=== PATIENT | female | born 1950 | race Caucasian/White ===

== ENCOUNTER → 2021-01-12 15:05 | Outpatient (CLI) | payer MEDICARE, SELFPAY ==
--- NOTE | ~2021-01-12 | XR_ITS ---
EXAMINATION: XR shoulder RT min 2V DATE: 01/12/2021 15:22 INDICATION: Right shoulder pain. TECHNIQUE: 4 views of right shoulder were obtained. COMPARISON: None. FINDINGS: Bone alignment is normal. No fracture. There is severe osteoarthritis of glenohumeral joint and moderate osteoarthritis of acromioclavicular joint. IMPRESSION: 1. Polyarticular osteoarthritis. Reviewed, dictated and finalized at location A.
== END ==
PROVIDERS: PCP Physician Assistant Medical; Visit Provider Physician Assistant Medical
DX: M25.511 Pain in right shoulder (principal); M19.011 Primary osteoarthritis, right shoulder
CPT/HCPCS: 73030

== ENCOUNTER → 2022-10-07 10:18 | Outpatient (CLI) | payer MEDICARE, SELFPAY ==
--- NOTE | ~2022-10-07 | DEXA_ITS ---
Bone Density Report Name: ERIC JARAMILLO Age: 71 Sex: Female Ethnicity: White Date of : 1950 Indication: postmenopausal osteoporosis; parental hip fracture; Referring Provider: Karen Brito Study: Bone densitometry was performed. Exam Date: October 07, 2022 Accession number: [id number] Bone Density: Region BMD T-score Z-score Classification AP Spine (L1-L4) 0.588 -4.2 -2.0 Osteoporosis Femoral Neck (Left) 0.642 -1.9 0.0 Osteopenia Total Hip (Left) 0.776 -1.4 0.2 Osteopenia Femoral Neck (Right) 0.616 -2.1 -0.2 Osteopenia Total Hip (Right) 0.702 -2.0 -0.4 Osteopenia Total Hip Mean 0.739 -1.7 -0.1 Osteopenia World Health Organization criteria for BMD impression classify patients as: Normal (T-score at or above -1.0), Osteopenia (T-score between -1.0 and -2.5), or Osteoporosis (T-score at or below -2.5). 10-year Fracture Risk: FRAX not reported because: Some T-score for Spine Total or Hip Total or Femoral Neck at or below -2.5 Previous Exams: Region Exam Age BMD T-score BMD Change BMD Change Date g/cm2 vs Baseline vs Previous AP Spine(L1-L4) 10/07/2022 71 0.588 -4.2 -0.152 -0.063* 04/14/2015 64 0.652 -3.6 -0.089 -0.089 10/08/2009 58 0.741 -2.8 Total Hip(Left) 10/07/2022 71 0.776 -1.4 -0.069* 0.018 04/14/2015 64 0.758 -1.5 -0.087* -0.087* 10/08/2009 58 0.845 -0.8 Total Hip(Right) 10/07/2022 71 0.702 -2.0 -0.126* -0.049* 04/14/2015 64 0.751 -1.6 -0.077* -0.077* 10/08/2009 58 0.828 -0.9 *Denotes significance at 95% confidence level, LSC for AP Spine = 0.022 g/cm2, LSC for Total Hip = 0.027 g/cm2 Clinical Information Provided by Patient: Parent has had a hip fracture Has used the following medications: Vitamin D, Calcium Patient maximum height was 65.5 Menopause Age: 53 No regular weight bearing exercise Does not regularly consume dairy products Onset of menses at age 13 Number of children 1 Impression: The patient has osteoporosis, based on the Total Spine T-score. The patient has risk factors, including: parental hip fracture. The BMD for the AP Spine(L1-L4) decreased, changing by -0.063 since the last DXA exam. The BMD for the Total Hip(Right) decreased, changing by -0.049 since the last DXA exam. Discussion: HIGH RISK OF FRACTURE. BONE DENSITY IS UNDESIRABLY LOW AT ONE OR MORE SKELETAL SITES, CONSISTENT WITH
== END ==
PROVIDERS: PCP Family Medicine; Visit Provider Nurse Practitioner
DX: Z78.0 Asymptomatic menopausal state (principal); M81.0 Age-related osteoporosis without current pathological fracture; M85.852 Other specified disorders of bone density and structure, left thigh; M85.851 Other specified disorders of bone density and structure, right thigh
CPT/HCPCS: 77080

== ENCOUNTER 2023-08-09 08:05 | Outpatient (CLI) | payer SELFPAY ==
[2023-08-09 08:55] LABS: Kit Draw Collected
== END 2023-08-09 08:06 | disposition home or self-care (01) ==
PROVIDERS: PCP Family Medicine
DX: Z76.89 Persons encountering health services in other specified circumstances (principal)
CPT/HCPCS: 36415

== ENCOUNTER 2024-02-28 09:43 | Outpatient (CLI) | payer MEDICARE, OTHER, SELFPAY ==
[2024-02-28 14:13] LABS: Basophils Percent Auto 0.7 % (0.2-1.2); Eosinophils Absolute Auto 0.1 K/mm3 (0-0.3); Eosinophils Percent Auto 1.5 % (0-4.4); Hematocrit 41.5 % (37.0-47.0); Hemoglobin 13.7 g/dL (12.0-15.0); Immature Granulocyte Absolute 0.01 K/mm3 (0.00-0.031); Immature Granulocyte Percent A 0.2 % (0-0.5); Lymphocytes Absolute Auto 1.38 K/mm3 (0.9-3.2); Lymphocytes Percent Auto 30.5 % (18.3-44.2); Mean Corpuscular Hemoglobin 32.3 pg (26-34); Mean Corpuscular Volume 97.9 fl (80-100); Mean Platelet Volume 11.4 fl (7.4-10.4); Monocytes Absolute Auto 0.4 K/mm3 (0.1-0.6); Monocytes Percent Auto 8.4 % (2.6-8.5); Neutrophils Absolute Auto 2.7 K/mm3 (1.3-6.7); Neutrophils Percent Auto 58.7 % (45.5-73.1); Platelet Count Result 193 k/mm3 (150-375); Red Blood Count 4.24 M/mm3 (4.2-5.4); White Blood Count 4.5 K/mm3 (4.5-10.0)
[2024-02-28 14:20] LABS: Anion Gap 6 mmol/L (4-12); Blood Urea Nitrogen 16 mg/dL (7-17); Calcium 9.2 mg/dL (8.4-10.2); Carbon Dioxide 29 mmol/L (22-30); Chloride 101 mmol/L (98-107); Cholesterol 269 mg/dL (0-200); Estimated Glomerular Filt Rate > 60; Glucose 95 mg/dL (65-110); HDL Direct 67 mg/dL; Potassium 3.9 mmol/L (3.4-5.0); Sodium 136 mmol/L (137-145); Triglycerides 122 mg/dL (<150)
[2024-02-28 14:32] LABS: LDL Cholesterol Direct 157 mg/dL
[2024-02-28 15:24] LABS: Hepatitis C Virus Antibody Negative (Negative)
== END 2024-02-28 09:44 | disposition home or self-care (01) ==
PROVIDERS: PCP Family Medicine; Visit Provider Nurse Practitioner Family
DX: E78.5 Hyperlipidemia, unspecified (principal); F41.1 Generalized anxiety disorder; G43.109 Migraine with aura, not intractable, without status migrainosus; L82.1 Other seborrheic keratosis; N89.8 Other specified noninflammatory disorders of vagina; Z11.59 Encounter for screening for other viral diseases
CPT/HCPCS: 36415; 80048; 80061; 84443; 85025; 86803

== ENCOUNTER 2024-04-05 14:44 | Outpatient (CLI) | payer MEDICARE, OTHER, SELFPAY ==
--- NOTE | 2024-04-05 15:18 | ECG_ITS ---
Test Date: 2024-04-05 15:23:09 Measurements Intervals [place] Rate: 75 P: 68 OR: 208 QRS: 74 QRSD: 82 T: 73 QT: 374 QTc: 419 Interpretive Statements SINUS RHYTHM NORMAL ECG No previous ECG available for comparison Electronically Signed On 04-05-2024 15:40:53 CDT by Reno Hadley D.O.
== END 2024-04-05 14:45 | disposition home or self-care (01) ==
PROVIDERS: PCP Family Medicine
DX: J32.9 Chronic sinusitis, unspecified (principal)
CPT/HCPCS: 93005

== ENCOUNTER 2025-04-09 13:29 | Outpatient (CLI) | payer MEDICARE, OTHER, SELFPAY ==
--- OUTSIDE RECORDS SUMMARY | 2024-07-01 11:30 | XMS_ITS ---
Author Organization [facility] ([address]) Address [address] [place] [address] Care Team Providers Care Extractor And Wringer Operator Name Role Phone Kell Sanchez Unavailable [phone] REASON FOR VISIT FLUXER Allergies Encounters Encounter Location Date Provider Diagnosis [facility] [address] [place] [address] 07/01/2024 Kell Sanchez Plan Of Treatment No Information Progress Notes * Lilly HITCHCOCKeDOB: [birth year] (74 yo F)Acc No.[id number]:07/01/2024 Progress Notes Patient: Tiffanie SMITH Provider: LILIAN Gonzales :1950 A ge:73 Y S ex:Female Date:07/01/2024 Address:[facility] [address] [facility] Subjective: * Chief Complaints: * 1 . FLUXER Allergies. * Medical History: Objective: * Vitals: Assessment: Plan: * Treatment: * Billing Information: * Visit Code: * Procedure Codes: * Electronic signature of Kell Sanchez DNP, FNP-C on 04/10/2025 at 12:44 PM GEAR MACHINE OPERATOR GENERAL Sign off status: Pending * Provider: LILIAN Gonzales Date: 0 07/01/2024 Generated for Printi ng/Faxing/eTransmitting on: 06/10/2024 12:44 PM GEAR MACHINE OPERATOR GENERAL
--- NOTE | ~2025-04-09 | US_ITS ---
EXAMINATION: US pelvic complete w TV INDICATION: Family history of malignant neoplasm of the ovary Comparison:No prior studies for comparison. TECHNIQUE: Multiple transabdominal and endovaginal sonographic images of the pelvis performed. FINDINGS: The uterus measures 5.4 x 3.1 x 3.9 cm. Focal calcification identified in the cervical canal of doubtful clinical significance. The endometrial complex measures 3 mm. The right ovary measures 2.4 x 0.8 x 1 cm and the left ovary measures 3.3 x 0.8 x 0.8 cm. There are small follicles in each ovary. Normal doppler signal in both ovaries. There is no free fluid in the pelvis. There are no abnormal masses seen on either side. IMPRESSION: 1. Unremarkable pelvic ultrasound. Reviewed, dictated and finalized at location O. L CASTER
--- OUTSIDE RECORDS SUMMARY | 2025-04-10 12:44 | XMS_ITS | Clinical Summary ---
Author Organization [facility] Address [address] [place] [address] Phone Care Team Providers Care Team Supervisor Name Role Phone Mack Carmichael MD Primary Care Provider [phone]- [phone] Encounters Date Type Department Care Team Description 03/26/2025 External Device Data [facility] ABSTRACTION Provider, Abstract 03/25/2025 External Device Data [facility] ABSTRACTION Provider, Abstract 02/25/2025 External Device Data [facility] ABSTRACTION Provider, Abstract 02/18/2025 External Device Data [facility] ABSTRACTION Provider, Abstract 02/11/2025 External Device Data [facility] ABSTRACTION Provider, Abstract 01/21/2025 External Device Data [facility] ABSTRACTION Provider, Abstract from Last 3 Months Family History Medical History Relation Name Comments Ovarian Cancer Mother Relation Name Status Comments Mother Social History Tobacco Use Types Packs/Day Years Used Date Smoking Tobacco: Never Assessed Comments No Sex and Gender Information Value Date Recorded Sex Assigned at Not on file Legal Sex Female 4:36 AM PHARMACY CONSULTANT Gender Identity Not on file Sexual Orientation Not on file Plan of Treatment Health Maintenance Due Date Last Done Comments FIT-DNA Q 3 years 01/01/1996 FIT/FOBT Q 1 year 01/01/1996 Flex Sig/CT Colonography Q 5 years 01/01/1996 PNEUMOCOCCAL VACCINE 50+ YEA RS (1 of 1 - PCV) 2000 ZOSTER VACCINE (1 of 2) 2000 OSTEOPOROSIS SCREENING 01/01/2016 INFLUENZA VACCINE (#1) 2025 BREAST CANCER SCREENING 12/04/2025 12/05/19 25, 10/04/2022, 12/25/2020, Additional history exists RSV VACCINE (60+ or ) (1 - 1-dose 75+ series) 2025 DTAP/TDAP/TD VACCINES (2 - T d or Tdap) 04/18/2026 04/18/2016 COLORECTAL SCREENING 07/07/2032 07/07/2022 Colorectal Cancer Screening 07/07/2032 Procedures Procedure Name Priority Date/Time Associated Diagnosis Comments MAMMO 3D ALAINA SCREEN BILAT W OR WO CAD Routine 12/04/2024 2:36 PM CDT Visit for screening mammogram from Last 3 Months or Most Recently Relevant to Health Maintenance Results * MAMMO 3D ALAINA SCREEN BILAT W OR WO CAD (12/04/2024 2:36 PM CDT) Anatomical Region Laterality Modality Breast Bilateral Mammography 12/04/2024 2:36 PM CDT Impressions 12/04/2024 3:13 PM CDT IMPRESSION: No mammographic evidence of malignancy. RECOMMENDATIONS: Routine screening mammogram in one year. DICTATION LOCATION: [facility] Narrative 12/04/2024 3:13 PM CDT BILATERAL FULL-FIELD DIGITAL SCREENING MAMMOGRAM WITH CAD WITH 3D TOMOSYNTHESIS DATE: 12/04/2024 2:36 PM HISTORY: Routine screening. TECHNIQUE: Full-field digital craniocaudal and mediolateral oblique projections of both breasts were obtained. Low-dose full-field digital breast tomosynthesis examination was performed with 2D and 3D acquisitions. Examination is read in conjunction with computer aided detection. COMPARISON: 2022, 2020, 2014 BREAST COMPOSITION: The breasts are heterogeneously dense, which may obscure small masses. FINDINGS: No suspicious mass, suspicious microcalcifications, or architectural distortion in either breast is identified. Since the prior study, there has been no significant interval change. The computer aided diagnosis detects no significant abnormality. OVERALL FINAL ASSESSMENT: BI-RADS CATEGORY 1: Negative. us Mack Carmichael MD MAMMO ORDERABLES Final Res ult from Last 3 Months or Most Recently Relevant to Health Maintenance Insurance MEDICARE PART A AND B [facility] [place] [id number] Care Teams Team Supervisor Relationship Specialty Start Date End Date Mack Carmichael MD PCP - General Family Practice 12/25/12
--- OUTSIDE RECORDS SUMMARY | 2025-04-10 12:44 | XMS_ITS | Clinical Summary ---
Author Organization [facility] Address [address] [place] [address] Care Team Providers Care Sack Lifter Name Role Phone Unavailable Primary Care Provider Unavailabl e Social History Tobacco Use Types Packs/Day Years Used Date Smoking Tobacco: Never Assessed Comments Unknown Sex and Gender Information Value Date Recorded Sex Assigned at Not on file Legal Sex Female 9:52 AM BINDERY SUPERVISOR Gender Identity Not on file Sexual Orientation Not on file Plan of Treatment Health Maintenance Due Date Last Done Comments Hepatitis C Virus (HCV) Screening 1950 Cologuard 01/01/1996 Colonoscopy 01/01/1996 Colorectal Cancer Screening 01/01/1996 Immunochemical Fecal Occult Blood 01/01/1996 Pneumococcal Immunization (5 0+ years) (1 of 1 - PCV) 2000 Zoster Immunization (1 of 2) 2000 Influenza Immunization (#1) 02/03/202501/2020, 06/13/2019 SARS-COV-2 Immunization (1 - season) 2025 Respiratory Syncytial Virus (RSV) Immunization (Adult) (1 - 1-dose 75+ series) 2025 DTaP/Tdap/Td Immunization Discontinued 04/18/2016 TdaP Immunization Completed 04/18/2016 Hepatitis B Immunization Aged Out No longer eligible based on patient's age to complete this topic Human Papillomavirus (HPV) Immunization Aged Out No longer eligible based on patient's age to complete this topic Meningococcal Immunization (ACWY) Aged Out No longer eligible based on patient's age to complete this topic Rotavirus Immunization Aged Out No lo nger eligible based on patient's age to complete this topic Insurance [employer] on file
--- OUTSIDE RECORDS SUMMARY | 2025-04-10 12:44 | XMS_ITS | Clinical Summary ---
Author Organization [facility] Address [address] [place] [address] Care Team Providers Care Data Warehouse Consultant Name Role Phone Mack Carmichael MD Primary Care Provider [phone]- [phone] Source Comments [facility],non-owned Affiliates and Associated Physician Practices is amultiple site organization consisting of ambulatory clinics and hospital sitesin [place], [place], [place]. This disclosure is being madepursuant to the Care Everywhere program and may not contain all information available regarding this patient. Last updated 18.[facility] Immunizations Immunization Administration Dates Next Due TDAP (7yrs+) 04/18/2016 Social History Tobacco Use Types Packs/Day Years Used Date Smoking Tobacco: Never Assessed Comments Unknown Sex and Gender Information Value Date Recorded Sex Assigned at Not on file Legal Sex Female 6:28 AM PET WALKER Gender Identity Not on file Sexual Orientation Not on file Plan of Treatment Health Maintenance Due Date Last Done Comments BONE DENSITY TESTING 1950 COLOGUARD (AGES 45-75) - COL ON CA SCREENING 1950 COLON MONITORING 1950 COLONOSCOPY - COLON CA SCREENING [address] CT COLONOGRAPHY - COLON CA SCREENING 1950 Colorectal Cancer Screening 1950 FIT - COLON CA SCREENING 1950 FLEX SIG - COLON CA SCREENING 1950 LIPID TESTING 1950 MAMMOGRAM 1950 HEPATITIS C SCREENING 12/26/1968 PNEUMOCOCCAL VACCINE 50+ (1 of 1 - PCV) 2000 ZOSTER VACCINE (1 of 2) 2000 DEPRESSION SCREENING 06/05/2024 COVID-19 VACCINE ( - 2023-2 5 season) 2025 INFLUENZA VACCINE (#1) 2025 Respiratory Syncytial Virus (RSV) Vaccine Pt: or over 60 yrs (1 - 1-dose 75+ series) 2025 DTAP/TDAP/TD VACCINES (2 - T d or Tdap) 04/18/2026 04/18/2016 HEPATITIS B VACCINE Aged Out No longe r eligible based on patient's age to complete this topic HIB VACCINE Aged Out No longer eligi ble based on patient's age to complete this topic HPV VACCINE Aged Out No longer eligi ble based on patient's age to complete this topic MENINGOCOCCAL (Group B) VACC INE SHARED DECISION-MAKING Aged Out No longer eligibl e based on patient's age to complete this topic MENINGOCOCCAL GROUPS A/C/Y/W VACCINE Aged Out No longer eligible b ased on patient's age to complete this topic [place] [address] COVENTRY MEDICARE Care Teams Data Warehouse Consultant Relationship Specialty Start Date End Date Mack Carmichael MD [address] [place] [id number] PCP - General Family Medicine 04/18/16
--- OUTSIDE RECORDS SUMMARY | 2025-04-10 12:44 | XMS_ITS | Encounter Summary ---
Author Organization [facility] Address [address] [place] [address] Care Team Providers Care Hose Turner Name Role Phone Mack Carmichael MD Primary Care Provider +1- [phone] Encounter Details Date Type Department Care Team (Late st Contact Info) Description 01/21/2003 Outpatient Historical [facility] Internal Medicine [address] [place] [address] [address] [place] [address] [place] [id number] [place] [address] [address] [place] [address] Social History Tobacco Use Types Packs/Day Years Used Date Smoking Tobacco: Never Assessed Comments Unknown Sex and Gender Information Value Date Recorded Sex Assigned at Not on file Legal Sex Female 4:36 AM IMPLEMENT MECHANIC Gender Identity Not on file Sexual Orientation Not on file documented as of this encounter Plan of Treatment Not on file documented as of this encounter Visit Diagnoses Not on filedocumented in this encounter Care Teams Hose Turner Relationship Specialty Start Date End Date Mack Carmichael MD PCP - General Family Practice 12/25/12 documented as of this encounter
--- OUTSIDE RECORDS SUMMARY | 2025-04-10 12:45 | XMS_ITS | Data Portability ---
Author Organization [facility] Address [address] [place] [address] Care Team Providers Care Mechanical Integrity Specialist Name Role Phone DAXAMARIZA LEVY Primary Care Provider [phone] Assessment No assessment recorded. Plan of Treatment Reminders Order Date Submit Date Provider Last Modified By Organization Details Last Modified Time Details Appointments None recorded. Lab None recorded. Referral None recorded. Procedures None recorded. Surgeries None recorded. Imaging None recorded. Medication Orders Imvexxy Maintenance Pack 4 mcg vaginal insert 2022 023 cfriederi [id number], [address], [place], [id number], 20:19:09 Patient TargetsNo targets recorded. Patient InstructionsNo instructions recorded. Reason for Referral None Reported. Results Created Date Observation Date Name Description Value Unit Range Abnormal Flag Note LastModifiedBy Organization Detail LastModifiedTime 09/22/1909/21/2022 VAGIN ITIS/ VAGIN OSIS, DNA PROBE erick sp. detection, direct probe Negati ve negati ve Not Available [facility] (Lab) [address], [place], [address], 09/22/2022 18:43:50 09/22/19 23 09/21/2022 VAGIN ITIS/ VAGIN OSIS, DNA PROBE gardnerella vag. detection, direct probe Positi ve negati ve abnormal Not Available [facility] (Lab) [address], [place], [address], 09/22/2022 18:43:50 09/22/19 23 09/21/2022 VAGIN ITIS/ VAGIN OSIS, DNA PROBE trichomonas vag. detection, direct probe Negati ve negati ve Not Available [facility] (Lab) [address], [place], [address], 09/22/2022 18:43:50 Result Notes None recorded. Problems Name Problem SNOMED Code Status Onset Date Resolution Date Notes Provider Name and Address Organization Details Recorded Time Family history of malignant neoplasm of ovary 429732291 Active 2015 Family history of cancer of ovary;Antonio rded Elsewhere: No Locatio n: [facility] rce: EHR Chroni c: N Practice ID: [id number] Billflash ble Time: 02:00:00 PM Not Available [facility] 0 21:26:14 Problem Notes None recorded. Procedures Surgical History Date Name Laterality Status Provider Name and Address Organization Details Recorded Time 07/07/19 23 Date of Last Colonoscopy completed [facility] 09/21/2022 15:22:01 07/07/19 23 Colonoscopy completed [facility] 09/21/2022 15:39:21 07/06/19 23 completed [facility] 09/21/2022 15:22:01 06/05/19 21 Date of Last Mammogram completed [facility] 09/21/2022 15:22:01 06/05/19 21 Date of Last Pap Smear completed [facility] 09/21/2022 15:22:01 06/05/19 18 Nsl/sins ndsc surg max sins completed [facility] 09/21/2022 15:38:51 06/05/19 10 Most Recent Bone Density completed [facility] 09/21/2022 15:22:01 06/05/19 03 frontal sinusectomy completed Nikole Goldstein [facility] 09/21/2022 15:38:35 06/05/18 93 Tubal Ligation completed Nikole Goldstein [facility] 09/21/2022 15:38:08 Imaging Results None recorded. Procedure Notes None recorded. Medical Equipment None Reported. Allergies No known drug allergies Medications Name Sig Start Date Stop Date Status Note LastModified by Organization Details LastModified Time fluconazo le 150 mg tablet TAKE 1 TABLET BY MOUTH 1 TIME 09/21 completed Not Available Not Available Not Available metronida zole 0.75 % (37.5 mg/5 gram) vaginal gel INSERT ONE APPLICAT ORFUL VAGINALL Y AT BEDTIME FOR 5 NIGHTS 10/05 completed Not Available Not Available Not Available amoxicill in 500 mg tablet take 1 tablet by oral route 3 times every day 09/21 completed Prescrib ed Elsewher e: No Locat ion: Mansoor heath [facility] odify By: miguel Heath ncounter DateTime : 04/10/20 17 03:39:25 PM Not Available Not Available Not Available alprazola m 0.5 mg tablet TAKE 1 TABLET BY MOUTH EVERY DAY AT BEDTIME NEEDED FOR ANXIETY active Not Available Not Available No t Available amitripty line 10 mg tablet TAKE 5 TABLETS BY MOUTH EVERY DAY AT BEDTIME active Not Available Not Available No t Available Xanax 0.25 mg tablet take 1 tablet by oral route 3 times every day 09/21 completed Prescrib ed Elsewher e: Yes Loca tion: [facility] odify By: amcaro Heath ncounter DateTime : 09/07/19 16 02:00:00 PM Not Available Not Available Not Available methylpre dnisolone 4 mg tablets in a dose pack FOLLOW PACKAGE DIRECTIO NS 09/21 completed Not Available Not Available Not Available Terazol 7 0.4 % vaginal cream insert 1 applicat orful by vaginal route every day for 7 days at bedtime 03/23 completed Prescrib ed Elsewher e: No Locat ion: Mansoor heath [facility] odify By: nerissahar tz Encou nter DateTime : 03/17/20 17 10:45:00 AM Not Available Not Available Not Available ondansetr on 4 mg disintegr ating tablet DISSOLVE 1 TABLET BY MOUTH 30 MINUTES PRIOR TO EACH PREP DOSE 09/21 completed Not Available Not Available Not Available Lipitor 10 mg tablet take 1 tablet by oral route every day 09/21 completed Prescrib ed Elsewher e: Yes Loca tion: Mansoor heath [facility] odify By: conchita dominguezunter DateTime : 09/07/19 16 02:00:00 PM Not Available Not Available Not Available nitrofura ntoin monohydra te/macroc rystals 100 mg capsule TAKE 1 CAPSULE BY MOUTH EVERY 12 HOURS FOR 7 DAYS 09/21 completed Not Available Not Available Not Available Divigel 0.5 mg/0.5 gram (0.1 %) transderm al gel packet apply 1 packet by topical route every day to upper thigh 09/21 completed Prescrib ed Elsewher e: Yes Loca tion: Mansoor heath [facility] odify By: marc smither DateTime : 04/06/20 17 11:30:00 AM Not Available Not Available Not Available Vagifem 10 mcg vaginal tablet insert 1 tablet by vaginal route 2 times every week 04/06 completed Prescrib ed Elsewher e: No Locat ion: Mansoor heath [facility] odify By: marc smither DateTime : 10/05/19 16 02:00:00 PM Not Available Not Available Not Available Plenvu 140 gram-9 gram-5.2 gram powder packs MIX AND DRINK DIRECTED MORNING AND EVENING SPLIT DOSING FIRST DOSE 6PM NIGHT BEFORE AND SECOND DOSE 6 HOURS PRIOR TO PROCEDUR E 09/21 completed Not Available Not Available Not Available Imvebest Maintenan ce Pack 4 mcg vaginal insert Insert 1 vaginal insert twice a week by vaginal route for 30 days. 2022 active Not Available Not Available Not Avai lable Vitals Date Recorded Body height Body mass index (BMI) Body weight Systolic And Diastolic Provider Name and Address Organization Details Last Updated DateTime 09/21/2022 165.1 cm 20 kg/m2 79347.08 g 118/78 mm[Hg] Nikole Goldstein [facility] 09/21/2022 15:21:10 Date Recorded Body height Body mass index (BMI) Body weight Systolic And Diastolic Provider Name and Address Organization Details Last Updated DateTime 10/05/2022 165.1 cm 20.3 kg/m2 82986.27 g 128/82 mm[Hg] Marianne Abner [facility] 10/05/2022 15:03:18 Social History Question Answer Notes LastModified by Organizat ion Details LastModified Time Tobacco Smoking Status Former Smoker Nikole Goldstein [facility], [facility] 09/21/2022 15:37:06 How Many Years Have You Consumed Alcohol? 50 [email or web address] Information not available 09/21/2022 Are You Blind Or Do You Have Difficulty Seeing? No [email or web address] Information n ot available 09/21/2022 What Is Your Level Of Caffeine Consumption? Moderate [email or web address] Information not available 09/21/2022 How Much Tobacco Do You Chew? None [email or web address] Information not available 09/21/2022 In The 14 Days Before Symptom Onset, Have You Had Close Contact With A Laboratory-confirm ed COVID-19 While That Case Was Ill? No [email or web address] Information n ot available 09/21/2022 In The 14 Days Before Symptom Onset, Have You Had Close Contact With A Person Who Is Under Investigation For COVID-19 While That Person Was Ill? No Information not available 09/21/2022 Have You Been To An Area Known To Be High Risk For COVID-19? No [email or web address] Information not available 09/21/2022 Are You Deaf Or Do You Have Serious Difficulty Hearing? No [email or web address] Information not available 09/21/2022 What Type Of Diet Are You Following? REGULAR [email or web address] Information n ot available 09/21/2022 What Is The Highest Grade Or Level Of School You Have Completed Or The Highest Degree You Have Received? [id number] [email or web address] Information not available 09/21/2022 Are There Any Guns Present In Your Home? No [email or web address] Information not available 09/21/2022 Have You Ever Been Counseled For Unhealthy Alcohol Use? No [email or web address] Information not available 09/21/2022 Do You Use Protection During Sex? No [email or web address] Information not available 09/21/2022 Do You Use Your Seat Belt Or Car Seat Routinely? Yes [email or web address] Information not available 09/21/2022 Do You Have Smoke And Carbon Monoxide Detectors In Your Home? Yes [email or web address] Information not available 09/21/2022 At What Age Did You Start Smoking Tobacco? 15 [email or web address] Information not available 09/21/2022 How Much Tobacco Do You Smoke? No [email or web address] Information not available 09/21/2022 Do You Use Sunscreen Routinely? Yes [email or web address] Information not available 09/21/2022 Has Tobacco Cessation Counseling Been Provided? No [email or web address] Information not available 09/21/2022 How Many Years Have You Smoked Tobacco? 15 [email or web address] Information not available 09/21/2022 Have You Used IV Drugs? No [email or web address] Information not available 09/21/2022 Do You Have Difficulty Walking Or Climbing Stairs? No [email or web address] Information not available 09/21/2022 Sex: Unknown Functional Status Question Answer Note LastModified by Organizat ion Details LastModified Time Do you use any illicit or recreational drugs? No [email or web address] Information not available 09/21/2022 Do you or have you ever used any other forms of tobacco or nicotine? No [email or web address] Information not available 09/21/2022 What is your level of alcohol consumption? Occasional [email or web address] Information not available 09/21/2022 Are you able to walk independently without assistance or assistive devices? YESWOREST Information not available 09/21/2022 Are you able to care for yourself independently? Yes [email or web address] Information not available 09/21/2022 What is your occupation? RETIRED Information not available 09/21/2022 What is your exercise level? Occasional [email or web address] Information not available 09/21/2022 Mental Status Question Answer Note LastModified by Organization D etails LastModified Time Do you feel stressed (tense, restless, nervous, or anxious, or unable to sleep at night)? [id number] [email or web address] Information not available 09/21/2022 Family History Relationship Description Onset Age of this Age Resolved Age Notes LastModified by Organization Details LastModified Time Mother Malignant neoplasm of ovary [email or web address] Not available 09/21 15:27:43 Mother Malignant neoplasm of colon Not available 09/21 15:27:50 Mother Hypertensive disorder [email or web address] Not available 09/21 15:40:14 Father Diabetes mellitus [email or web address] Not available 09/21 15:39:44 Father Heart disease [email or web address] Not available 09/21 15:39:56 Father Hypertensive disorder Not available 09/21 15:40:13 Notes:Father: Hypertension, Diabetes mellitus, Cardiovascular disease, High cholesterol Mother: Cancer, colon, Hypertension Medical History Condition Response Allergies (Food, seasonal, environmental ) N Other N Breast Cancer N Drug/Latex Allergies/Reactions N Blood Transfusion N Dermatologic Disorders N Lung Disease N Defects or Inherited Disease N Breast Problem N Gestational Diabetes N Hematologic disorders N Anesthesia Complications N History of STI N Deep Vein Thrombosis N Polycystic ovary syndrome N Anxiety Disorder Y Autoimmune disease N Arthritis N Infertility N Polyps N Acid Reflux (GERD) N History of abnormal pap N Cancer N Stroke N Varicosities N Neurologic/Epilepsy N Endometriosis N High Cholesterol Y Headaches N Fibromyalgia N Kidney Disease N Heart Problems N Kidney or Bladder Problems N Thyroid Problems N GI Problems N Eating Disorder N Anemia N Art (IVF or FET) N Psychiatric Illness N Ovarian Cancer N Diabetes N Pulmonary (TB, Asthma) N Hepatitis/Liver Disease N No Past Medical History N Eczema N Urinary Tract Infection N Abuse/Domestic Violence N Asthma N Trauma/Violence N Depression/ depression N Heart Disease N Pre-Eclampsia N Hypertension N Osteoporosis N Thrombophilias N Gynecological History Statement/Question Response Abnormal Pap N Date of Last Mammogram 06/05/2020 Date of LMP 06/05/2004 N On BCP's at Conception? N STIs/STDs N Was last menstrual period normal N HPV Vaccine N Duration of Flow (days) 0 Current Control Method Tubal Ligat ion Age at First Child 41 If Post Menopausal, Age at Menopause 59 Date of Last Colonoscopy 07/07/2022 Frequency of Cycle (Q days) 0 Most Recent Bone Density 06/05/2009 Sexually Active? N Age of first menstrual cycle 13 Date of Last Pap Smear 06/05/2020 Sexual Problems? N LMP Unknown 07/06/2022 Y Obstetrics History GPAL:G 1 P 1 0 0 1 Type Value Full Term 1 Living 1 Total 1 Past Encounters Encounter ID Performer Location Encounter Start Date Encounter Closed Date Diagnosis/Indication Diagnosis SNOMED-CT Code Diagnosis ICD10 Code Diagnosis IMO Codes Diagnosis Note [id number] Leslee Albright [facility] [address] [address] 09/21/2022 14:47:52 10/04/2022 16:20:32 Atrophic vaginitis 36853132 N95.2 Imvexxy 4mcg samples givenRTO x 1mos Counseled on the following: Vaginal Dryness: Bothersome symptoms of the vagina and vulva (outer lips of the vagina) increase during and after the menopause transition or may start several years after menopause. The decrease in estrogen with menopause is a major contributo r to vaginal dryness, itching, burning, discomfort , and pain during intercours e or other sexual activity. Vaginal atrophy is the medical term that describes these changes. The genitourin juan syndrome of menopause includes bothersome vaginal atrophy often combined with urinary symptoms. Vaginal atrophy may significan tly affect your quality of life, sexual satisfacti on, and relationsh ip with your partner. Unlike hot flashes, which generally improve with time, vaginal symptoms typically worsen with time because of aging and a prolonged lack of estrogen. Vaginal estrogen therapy An effective and safe treatment, low-dose local estrogen is applied directly to the vagina to restore vaginal health and relieve vaginal dryness and discomfort with sexual activity. Improvemen ts usually occur within a few weeks, although complete relief may take several months. This even may be an option for women with a history of breast or uterine cancer but only after careful considerat ion of risks and benefits with a healthcare provider and oncologist . Government -approved low-dose vaginal estrogen products are available by prescripti on as vaginal creams (used two or three nights/wee k), a vaginal estradiol tablet (used twice/week ), and an estradiol vaginal ring (changed every 3 months). All are highly effective. You may wish to try several different forms and choose the one you prefer. Standard doses of estrogen therapy provided to treat hot flashes also treat vaginal dryness, although some women still benefit from additional low-dose vaginal estrogen treatment. If only vaginal symptoms are present, low doses of estrogen applied to the vagina are recommende d. Resources: https://fay dumont.Tunes.com.org/docs /default-s ource/for- women/mn-v aginal-dry ness.pdf Gynecologi c examination 96093990 Z01.419 Take Calcium with Vitamin D 12-1500mg daily. Do monthly self breast exams. It is advised to get annual flu shot in the fall and she could obtain at [facility] or [facility] care clinic. If you haven't received the Tdap vaccine in the last 10 years you should obtain one as well. Have mammogram yearly, bone density every 2-3 years and colonoscop y every 5-10 years depending on findings and history. Engage in daily exercise of low impact aerobic exercise 45-60 minutes 4-5 times weekly. Avoid tobacco and illicit drugs as well as using moderation with alcohol intake less than 1-2 8 oz beverages daily. This lifestyle behavior pattern will lead to less health conditions and longer life span. If BMI greater than 25 weight watchers or dietary consult advised. Questions have been answered. Patient appears to understand instructio ns, but if you have any further questions call or respond to this email Pap/hpv USPSTF recommends against screening for cervical cancer in women older than 65yo, those who've had a hysterecto my for non-cancer indication s, & who have had adequate prior screening & are not otherwise at high risk for cervical cancer. STD Screen declined Genetic Screen discussed Colon Screen UTD PCP Dexa Screen UTD PCP Routine Labs UTD PCPmammo [facility] PCP [id number] JEANA [facility] [address] [address] 10/05/2022 14:57:01 10/05/2022 17:04:39 Atrophy of vagina 176917910 N95.2 N94.10 Today we discussed Osphena Trial.Does not tolerate estrogen products (estradiol , OCP-as a teen, Estrace vag cream); has many side effects such as insomnia and mood changes.We discussed that vulvar/vag moisturizi ng DAILY is a a must regardless of if products are used or not.Unders tanding verbalized . We will see what cost a trial of Osphena goes for & contact her to see if she would like to pursue this product.Kelli heath does have a uterus so precaution s for AUB & a once a year US would be required to pursue this medication . Counseled on medication R/B's, Most common side effects, & use. All questions were answered to patient satisfacti on. Time spent in visit is a total of 15 mins with at least 50% of visit consisting of counseling and review of plan of care. Health Concerns Section Related Observation LastModified by Organization Detai ls LastModified Time None Recorded Concern Status LastModified by Organization Details LastModified Time None Recorded Advance Directives Directive None Recorded Payers Insurance Date Sequence Insurance Name Policy Number Policy Bunch Covered Member ID Bunch Member ID Guarantor Name 07/04/2023 2 [employer] (MEDICARE SUPPLEMENT) Tiffanie Drainer [id number] Tiffanie Drainer 07/04/2023 1 [place] Tiffanie Drainer [id number] Tiffanie Drainer 07/04/2023 3 [facility]IOR TO 12/03/2020 (MEDICAID REPLACEMENT - HMO) Tiffanie Drainer [id number] Tiffanie Drainer 07/04/2023 2 [employer] (MEDICARE SUPPLEMENT) Tiffanie Drainer [id number] Tiffanie Drainer 07/04/2023 3 [facility] (MEDICAID HMO) Tiffanie Drainer [id number] Tiffanie Drainer 07/04/2023 3 [facility] PRIOR TO 12/03/2020 (MEDICAID REPLACEMENT - HMO) Tiffanie Drainer [id number] Tiffanie Drainer Notes Date Note Type Note Provider Name and Address Organization Details Recorded Time 3 text/html Annual Sales Person Post-MenopausalReported by PatientGenitourinary symptomsFor menopausal symptoms, patient reportsno menopausal symptomsandnormal vaginal lubrication. For vaginal bleeding, patient reportshistory of menopause having occurredandno history of post menopausal bleeding. For urinary symptoms, patient reportsno hematuria,no incontinence,no nocturia, andno urinary frequency. For vulva, patient reportsno genital lesionandno vulvar atrophy. For vagina, patient reportsnormal vaginal dischargeandno vaginal atrophy.Breast symptomsFor breast, patient reportsno breast lump,no nipple discharge, andno breast pain.Psychological symptomsFor sexual complaints, patient reportsno sexual complaints. For psychological symptoms, patient reportsno depressionandno anxiety.Preventative measuresFor preventive measures, patient reportsencourage regular mammograms starting age 40,encourage self breast examination,encourage regular exercise,encourage no tobacco use,mammogram performed within the past year, andhistory of recent colonoscopy. Leslee Albright [facility] [address], [place], [address], [facility] 10/02/2022 20:20:33 3 text/html ROS as noted in the HPI Here today for medication check of Imvexxy.Has been having insomnia with use of this medication.She stops it a this resolves.Hx of side effects of other estrogen products similar to this in the past. Leslee Albright [facility] [address], [place], [address], [facility] 10/05/2022 17:04:35 OBGyn Episode Ob Episode Information Episode Created Date Number of Fetuses Patient Bloodtype Patient rh Status Prepregnancy Weight lbs Domestic Partner Domestic Partner Phone Father Name Echo Vasc Tech Status 09/22/19 23 1 CLOSED Fetus Data First Name Last Name Admitted to NICU Weight (g) Sex Living Outcome Pediatric Complications Fetus ID Race Codes Race Delivery Type 3742.13 4 M Full Term [id number] Vaginal Delivery Flako Calculation Initial Flako Date Initial Exam Date Initial Exam Provider Initial Ultrasound Date Last Menstrual Period Date Ultra Sound Weeks Gestation 0 Eighteen To Twenty Week Flako Update Ultra Sound Date Fundal Height At Umbil Quickening Date Ultra Sound Latest Weeks Gestation Final Flako Confirmed By Final Flako Confirmed Date Final Flako Date Ultra Sound Latest Days Gestation 0 0 Menstrual History Last Menstrual Date Menses Monthly On Bcp Conception Prior Menses Frequency Hcg Plus Date Menarche Onset Age Delivery Information Delivery Date Delivery Type Labor Anesthesia Weeks Gestation Incision Type Labor Labor Length Hrs Delivered By Post Complications Tubal Sterilization Discharge Date Comments 3 40 false Discharge Information Feeding Method Contraceptive Method Maternal HG B and HCT Levels
--- OUTSIDE RECORDS SUMMARY | 2025-04-10 12:45 | XMS_ITS | Patient Health Record ---
Author Organization [facility] ([address]) Address [address] [place] [address] Care Team Providers Care Administrative Services Manager Name Role Phone Kell Sanchez Unavailable [phone] Reason For Referral No Information Plan Of Treatment No Information Insurance Providers Payer Name Payer Address Payer Phone Subscriber Number Group Number Insured Name Patient Relationship to Insured Coverage Start Date Coverage End Date [employer] (Medicare) Attention Claims [address] [facility] [place] [address] [id number] Tiffanie Hitchcock [place] - [place] [address] [phone] [id number] Tiffanie Hitchcock Self - patient is the insured
== END 2025-04-09 13:30 | disposition home or self-care (01) ==
PROVIDERS: PCP Family Medicine; Visit Provider Nurse Practitioner Family
DX: R10.20 Pelvic and perineal pain unspecified side (principal); Z80.41 Family history of malignant neoplasm of ovary
CPT/HCPCS: 76830; 76856